=== PATIENT | female | born 1995 | race Caucasian/White ===

== ENCOUNTER 2017-10-05 10:49 | Emergency (ER) | payer SELFPAY ==
[~2017-10-05] VITALS: Ht 167.6 cm; Wt 69.9 kg
[2017-10-05 11:02] VITALS: TEMP 36.8; Ht 167.6 cm; Wt 69.9 kg
[2017-10-05] MEDS ORDERED: OPTIRAY 320 IV PRN (13:45)
[2017-10-05 14:33] LABS: BASO % 0.2 %; BASO ABS # 0.02 K/uL (0-0.2); EOS % 0.2 %; EOS ABS # 0.02 K/uL (0-0.5); HEMATOCRIT 41.3 % (37-47); IG# 0.02 K/uL (0.00-0.02); LYMPH % 14.1 %; LYMPH ABS # 1.15 K/uL (1.2-3.4); MEAN CELL VOLUME 78.8 fL (80-100); MEAN CORPUSCULAR HEMOGLOBIN 26.7 pg (25-34); MEAN CORPUSCULAR HGB CONC 33.9 g/dl (32-36); MEAN PLATELET VOLUME 10.3 fL (7.4-10.4); MONO % 7.4 %; NEUT % 77.9 %; NEUT ABS # 6.35 K/uL (1.4-6.5); PLATELET COUNT 237 K/uL (130-400); RED CELL DISTRIBUTION WIDTH CV 20.8 % (11.5-14.5); RED CELL DISTRIBUTION WIDTH SD 58.9 fL (36.4-46.3); WHITE BLOOD COUNT 8.16 K/uL (4.8-10.8)
[2017-10-05 14:49] LABS: CREATININE 0.69 mg/dl (0.60-1.20)
[2017-10-05 14:50] LABS: CALCIUM 9.1 mg/dl (8.5-10.1); POTASSIUM 3.8 mmol/L (3.5-5.1)
--- NOTE | 2017-10-05 15:55 | DIAGNOSTIC IMAGING REPORT ---
CT SCAN OF THE ABDOMEN AND PELVIS WITH IV CONTRAST CLINICAL HISTORY: Pilonidal abscess. COMPARISON STUDY: No priors. TECHNIQUE: Following the IV administration of 95 cc of Optiray 320, CT scan of the abdomen and pelvis is performed from the lung bases to the proximal femora. Images are reviewed in the axial, sagittal, and coronal planes. IV contrast was administered without complication. A dose lowering technique was utilized adhering to the principles of ALARA. CT DOSE: 645.38 mGy.cm FINDINGS: Lung bases: The heart is normal in size and without pericardial effusion. The lung bases are clear. Liver: The contrast-enhanced liver is normal in size, contour, and attenuation. There is no intrahepatic biliary ductal dilatation. The hepatic veins and portal veins are patent. Gallbladder: Unremarkable. Spleen: Normal in size and attenuation. Pancreas: Unremarkable. Adrenal glands: Unremarkable. Kidneys: The contrast enhanced kidneys are normal in size and without hydronephrosis. The kidneys enhance symmetrically. Abdominal vasculature: The abdominal aorta is normal in course and caliber. Bowel: The small bowel and colon are normal in course and caliber. The appendix is well-visualized and normal. Peritoneum: There is no intraperitoneal free air or abdominal ascites. There is a small fat-containing umbilical hernia. A naval piercing is noted. Lymphadenopathy: None. Pelvic viscera: The bladder is decompressed and grossly unremarkable. The uterus is normal as visualized. There are numerous bilateral ovarian follicles. A 4.8 cm cyst is noted in the left ovary. Trace free fluid is identified in the cul-de-sac. Skeletal structures: No lytic or blastic lesions are seen. Soft tissues: There is inflammation within the subcutaneous fat posterior the sacrum at the level of S5. This is breast seen on axial image #342. A small gas and fluid containing collection is seen at the dermal surface at this site and measures approximately 3 x 2 cm. The appearance is consistent with abscess and surrounding cellulitis. This does not extend to the underlying sacrum. IMPRESSION: 1. There is evidence of cellulitis with an approximately 3 x 2 cm abscess at the dermal surface in the posterior soft tissues at the level of S5. This is located just above the gluteal crease. This does not extend to the underlying sacrum. 2. There is a 4.8 cm left ovarian cyst. 3. Trace free fluid in the cul-de-sac is likely within physiologic limits. Electronically signed by: Gabe Stewart M.D. 10/05/2017 3:53 PM Dictated Date/Time: 10/05/2017 3:44 PM
[2017-10-05] MEDS ORDERED: SULF800T23 PO (16:04)
[2017-10-05] MEDS ORDERED: CEPH500C2 PO (16:04)
[2017-10-05 16:34] VITALS: BP 125/68; PULSE 88; O2SAT 99
--- NOTE | 2017-10-05 17:39 | EMERGENCY ROOM VISIT NOTE ---
ED Visit Note First contact with patient: 11:25 CHIEF COMPLAINT: I have a lump on my lower back and it is painful. HISTORY OF PRESENT ILLNESS: Ms. Ro is an 22-year-old female who ambulates into the ED accompanied by female friend complaining of a lump over her buttocks. Patient reports she noted a lump over the superior aspect of the gluteal cleft that started approximately a week ago. Since that time she has noted that it has been growing larger and there developed redness around the bump. 3 days ago she reports she reached around to touch the area and noted a small amount of clear drainage from the lump. Occasionally over the last 3 days she had noted ongoing drainage from the area. She denies any precipitating soft tissue injury in the area before the onset of the lump or redness. Associated with her lump she reports she is having pain in that area. She describes the pain as a pressure sensation that becomes sharp when it is palpated or when she sits on her buttocks. She rates her discomfort 7/10. Her pain is nonradiating. She has not identified any alleviating factors related to the pain. She reports she has been taken Aleve with more relief of her discomfort. Associated with her pain she reports she has been having night sweats. She denies fevers, chills, other skin eruptions, other skin color changes, abdominal pain, nausea, vomiting, diarrhea, constipation, rectal bleeding, black /tarry stools, urinary symptoms, decreased appetite. REVIEW OF SYSTEMS: As noted above in History of Present Illness; 8 body systems are reviewed with the patient and found negative unless noted above otherwise. PAST MEDICAL HISTORY: Patient denies. CURRENT MEDICATION: Patient denies. ALLERGIES TO MEDICATION: Patient denies. SOCIAL HISTORY: Patient is currently university student; she feels safe in her home environment; she denies tobacco use and admits to alcohol use. PHYSICAL EXAM: Vital Signs: Date Time Temp Pulse Resp B/P (MAP) Pulse Ox O2 Delivery O2 Flow Rate FiO2 10/05/17 16:34 88 18 125/68 99 10/05/17 15:00 88 20 122/78 99 Room Air 10/05/17 14:05 94 16 120/81 100 Room Air 10/05/17 12:45 79 18 129/74 98 Room Air 10/05/17 11:02 36.8 87 18 123/76 99 Room Air General: 22 year-old female in mild to moderate distress due to pain, nontoxic appearing, afebrile and hemodynamically stable. Neurological: Awake, alert and oriented to person, place and time. Answering questions appropriately and following commands. Skin: Warm, dry and pink. Gluteal Fold: Over the top of the gluteal fold patient has a 5.5 cm area of induration that is fluctuant. There is no active drainage from this abscess. There is a zone of inflammation around it but no lymphangitis. Thorax: Lungs sounds are clear to auscultation and equal bilaterally with symmetrical chest wall movement. No wheezing, rales or rhonchi. No increased respiratory effort. Abdomen: Flat, soft and nontender. Positive bowel sounds in all quadrants. No guarding or rigidity. ED COURSE: Patient is assessed as noted above. Patient's medication list was reviewed. Patient was offered pain medication and refused. Incision and Drainage: Verbal consent was obtained after the risks and benefits were explained. The skin was prepped with betadine and a sterile field set. The area surrounding the abscess was anesthetized with ethyl chloride. The abscess cavity was incised with a scalpel. Approximately 6 mL of purulent material was drained from the abscess and more was expressed. Aerobic cultures were obtained and are currently pending. The abscess cavity was sharply dissected with iris scissors to break up loculations and a small amount of additional purulent drainage was expressed. Copious irrigation was performed using sterile saline. Hemostasis was achieved. Iodoform gauze packing was inserted into the abscess. A sterile dressing was applied. No complications and the patient tolerated the procedure well. The drainage from the patient's wound was bloody with a moderate amount of pus. But it was also noted there were multiple fine specks of dark material and that her drainage smell like feces and not pus. Laboratory Testing: Test 10/05/17 13:45 10/05/17 13:58 Range/Units White Blood Count 8.16 4.8-10.8 K/uL Red Blood Count 5.24 4.2-5.4 M/uL Hemoglobin 14.0 12.0-16.0 g/dL Hematocrit 41.3 37-47 % Mean Corpuscular Volume 78.8 80-100 fL Mean Corpuscular Hemoglobin 26.7 25-34 pg Mean Corpuscular Hemoglobin Concent 33.9 32-36 g/dl Platelet Count 237 130-400 K/uL Mean Platelet Volume 10.3 7.4-10.4 fL Neutrophils (%) (Auto) 77.9 % Lymphocytes (%) (Auto) 14.1 % Monocytes (%) (Auto) 7.4 % Eosinophils (%) (Auto) 0.2 % Basophils (%) (Auto) 0.2 % Neutrophils # (Auto) 6.35 1.4-6.5 K/uL Lymphocytes # (Auto) 1.15 1.2-3.4 K/uL Monocytes # (Auto) 0.60 0.11-0.59 K/uL Eosinophils # (Auto) 0.02 0-0.5 K/uL Basophils # (Auto) 0.02 0-0.2 K/uL RDW Standard Deviation 58.9 36.4-46.3 fL RDW Coefficient of Variation 20.8 11.5-14.5 % Immature Granulocyte % (Auto) 0.2 % Immature Granulocyte # (Auto) 0.02 0.00-0.02 K/uL Anisocytosis PRESENT Sodium Level 138 136-145 mmol/L Potassium Level 3.8 3.5-5.1 mmol/L Chloride Level 105 98-107 mmol/L Carbon Dioxide Level 26 21-32 mmol/L Anion Gap 8.0 3-11 mmol/L Blood Urea Nitrogen 10 7-18 mg/dl Creatinine 0.69 0.60-1.20 mg/dl Est Creatinine Clear Calc Drug Dose 120.7 ml/min Estimated GFR () 144.2 Estimated GFR (Non- 124.4 BUN/Creatinine Ratio 14.3 10-20 Random Glucose 86 70-99 mg/dl Calcium Level 9.1 8.5-10.1 mg/dl Urine Color DK YELLOW Urine Appearance CLEAR CLEAR Urine pH 6.0 4.5-7.5 Urine Specific [place] 1.028 1.000-1.030 Urine Protein NEG NEG Urine Glucose (UA) NEG NEG Urine Ketones 1+ NEG Urine Occult Blood NEG NEG Urine Nitrite NEG NEG Urine Bilirubin NEG NEG Urine Urobilinogen NEG NEG Urine Leukocyte Esterase NEG NEG Urine Test NEG NEG Gram Stain: Pending Wound Culture: Pending IV Contrast Abdominal/Pelvic CT: Was reviewed by myself and read by the radiologist and shows evidence of cellulitis with a 3 x 2 cm abscess in the dermal surface of the posterior soft tissues at the level of S5. This is a loculated just above the gluteal crease with no extension into the sacrum. Additionally noted a 4.8 cm left ovarian cyst and trace fluid within the pelvis within normal limits. Patient was educated about his condition and instructed on his treatment plan; they verbalized understanding and agreement with this plan. CLINICAL IMPRESSION: Pilonidal abscess. DISPOSITION: Patient discharged to home in stable condition accompanied by female friend; prior to departure she was reassessed and subjectively reported she was feeling slightly better and rated her discomfort 6/10 PLAN: Patient was encouraged alternate ibuprofen and acetaminophen as needed for pain ; she was offered additional stronger medications and refused. Patient was placed on a 10 day course of Keflex 500 mg 4 times a day and Bactrim DS 2 times a day. Patient was encouraged to follow-up at [facility] or return to the ED in 36-48 hours for recheck, packing removal urine culture results. Patient was encouraged return the ED sooner for any increasing redness/swelling , fevers, uncontrolled pain or any new/concerning symptoms.
== END 2017-10-05 16:36 | disposition home or self-care (01) ==
LOC: C.EDB 10:53 → C.EDD 16:36
DX: L05.01 Pilonidal cyst with abscess (principal)

== ENCOUNTER 2017-10-07 17:06 | Emergency (ER) | payer SELFPAY ==
[~2017-10-07] VITALS: Ht 167.6 cm; Wt 69.9 kg
[~2017-10-07 17:06] MED LIST: CEPH500C2 PO; SULF800T23 PO
[2017-10-07 17:15] VITALS: TEMP 37.3; Ht 167.6 cm; Wt 69.9 kg
[2017-10-07] MEDS ORDERED: FERR1TAB23 PO (18:20)
[2017-10-07] MEDS ORDERED: METR-163 PO (18:38)
--- NOTE | 2017-10-07 18:40 | EMERGENCY ROOM VISIT NOTE ---
ED Visit Note First contact with patient: 18:02 CHIEF COMPLAINT: Packing removal and pilonidal abscess recheck HISTORY OF PRESENT ILLNESS: This 22-year-old female patient presents to the emergency department, ambulatory, for packing removal of a pilonidal abscess which was drained here 2 days ago. The packing is still in place. The patient states there was a significant amount of bloody drainage yesterday, however this has improved today. She continues to have some tenderness and discomfort, but does feel the wound is improving. Previous care outlined has been followed without difficulty. She denies any fever, chills, nausea, vomiting, body aches , ongoing purulent drainage, or other concerning symptoms. The patient is taking antibiotics as prescribed. She states she started them yesterday. REVIEW OF SYSTEMS: A 6 system review of systems was completed with positives and pertinent negatives listed in the HPI. ALLERGIES: None MEDICATIONS: Keflex, Bactrim PMH: Unchanged from previous visit. PHYSICAL EXAM: Vital Signs reviewed, see Nurse's notes. Patient is afebrile, vital signs stable. GENERAL: This is a 22-year-old white female, awake, alert, well appearing, no acute distress SKIN: Packing is in place just superior to the buttocks. There is no continued purulent discharge. The redness is still present. The wound is healing well, but continues to have a strong odor of stool. There is brown drainage on the packing which is removed. There is some mild ongoing bleeding and tenderness on palpation. NEURO: No sensory or motor deficits noted. EMERGENCY DEPARTMENT COURSE AND DECISION MAKING: Previous medical records reviewed. I examined the patient. The packing was removed from the backside. The wound is healing well, however based on culture results showing probable anaerobic gram-negative bacilli, as well as only mild improvement in her symptoms and appearance of the wound, the patient will be started on Flagyl in addition to the Keflex and Bactrim she is already taking. I did discuss this with the ED pharmacist, who was agreeable to this plan of care. I discussed the findings and plan of care with the patient at bedside. She was agreeable. All questions answered to patient's satisfaction. Discharge instructions reviewed. Discharged in stable condition. I attest that I have personally reviewed the patient's current medication list. Patient was found to have normal blood pressure on screening and does not require follow-up. Differential diagnosis includes pilonidal abscess, wound recheck, packing removal, cellulitis, intra-abdominal abscess, malignancy, and others DIAGNOSIS: Packing removal, pilonidal abscess The chart was completed utilizing [employer] Speech voice recognition software. Grammatical errors, random word insertions, pronoun errors, and incomplete sentences are an occasional consequence of this system due to software limitations, ambient noise, and hardware issues. Any formal questions or concerns about the content, text, or information contained within the body of this dictation should be directly addressed to the provider for clarification. Current/Historical Medications Scheduled Cephalexin Monohydrate (Keflex), 500 MG PO QID Ferrous Sulfate (Iron), 325 MG PO DAILY Metronidazole (Flagyl), 500 MG PO TID Sulfa/Trimethoprim (Bactrim Ds 800MG/160MG), 1 TAB PO BID Allergies Coded Allergies: No Known Allergies (Unverified , 10/05/17) Vital Signs Date Time Temp Pulse Resp B/P (MAP) Pulse Ox O2 Delivery O2 Flow Rate FiO2 10/07/17 18:47 76 18 105/68 96 10/07/17 17:15 37.3 83 16 116/74 98 Room Air Departure Information Impression Primary Impression: Encounter for wound re-check Additional Impression: Pilonidal abscess Dispostion Home / Self-Care Condition GOOD Prescriptions Metronidazole (Flagyl) 500 Mg Tab 500 MG PO TID for Pain for 10 Days, #30 TAB For Initial Treatment Prov: Mickie Fonseca PA-C 10/07/17 Referrals No Doctor, Assigned (PCP) Samm Cunningham MD Patient Instructions ED Cyst Pilonidal Infected [facility], [facility] Additional Instructions You were seen in the emergency department today for a wound recheck of the pilonidal abscess. Based on culture results, I am concerned that the antibiotics you are on are not fully covering the bacteria which are causing the infection. Your given a prescription for metronidazole to be taken as directed for the next 10 days. Take as directed. You were given the contact information for the general surgeon. Contact the surgeon if the wound returns, or if it does not improve in 1 week. Warm compresses and sitz baths to help with discomfort and to help expel pus. Follow-up in 1 week with [facility] for reevaluation. Ibuprofen(Motrin, Advil) may be used for fever or pain. Use 600mg every six hours as needed. Take with food. Avoid using more than 2400mg in a 24 hour period. Do not use 2400mg per day for more than three consecutive days without physician direction. Prolonged inappropriate use can lead to stomach upset or ulcers. (AND/OR) Acetaminophen(Tylenol) may be used for fever or pain. Use 1000mg every six to eight hours as needed. Avoid using more than 3000mg in a 24 hour period. Return immediately to the emergency department for any significantly worsening pain, redness, purulent drainage, fevers, chills, systemic symptoms, or other concerning symptoms. Problem Qualifiers
[2017-10-07 18:47] VITALS: BP 105/68; PULSE 76; O2SAT 96
== END 2017-10-07 18:50 | disposition home or self-care (01) ==
LOC: C.EDB 17:07 → C.EDD 18:50
DX: Z48.00 Encounter for change or removal of nonsurgical wound dressing (principal); L05.01 Pilonidal cyst with abscess